=== PATIENT | female | born 1980 | race African-American/Black ===

== ENCOUNTER 2021-02-24 18:45 | Emergency (ER) | payer BC ==
[~2021-02-24] VITALS: Ht 170.2 cm; Wt 114.1 kg
[2021-02-24 19:12] VITALS: TEMP 102.7
[2021-02-24 21:22] LABS: BASO % 0.4 % (0.0-2.0); EOS % 0.2 % (0-4.0); GRAN # 2.5 (1.4-6.5); GRAN % 50.3 % (42.2-75.2); HEMATOCRIT 43.7 % (37.0-47.0); HEMOGLOBIN 13.8 g/dl (12.5-16.0); LYMPH # 1.6 (1.2-3.4); LYMPH % 32.7 % (20.0-51.0); MEAN CELL VOLUME 86 fl (80.0-100.0); MEAN CORPUSCULAR HEMOGLOBIN 27 pg (27.0-31.0); MEAN CORPUSCULAR HGB CONC 32 g/dl (33.0-37.0); MEAN PLATELET VOLUME 10.3 fl (7.4-10.4); MONO # 0.8 (0.1-0.6); MONO % 16.2 % (1.7-9.3); PLATELET COUNT 252 K/mm3 (130-400); RED BLOOD COUNT 5.08 M/mm3 (4.10-5.30); REDCELL DISTRIBUTION WIDTH-CV 14.1 % (11.5-14.5)
[2021-02-24 21:32] LABS: ALBUMIN 4.2 gm/dL (3.5-5.0); BILIRUBIN,TOTAL 0.6 mg/dL (0.0-1.0); CALCIUM 9.2 mg/dL (8.4-10.2); CREATININE, serum 1.12 (0.52-1.25); POTASSIUM 4.1 mmol/L (3.4-5.0); TOTAL PROTEIN 8.4 gm/dL (6.4-8.2)
[2021-02-25 00:53] VITALS: BP 117/83; PULSE 88
== END 2021-02-25 00:53 | disposition home or self-care (01) ==
LOC: COL.ER 18:45
PROVIDERS: Personal Emergency Response Attendant
DX: U07.1 COVID-19 (principal); Z86.711 Personal history of pulmonary embolism
CPT/HCPCS: J7030; Q9967

== ENCOUNTER 2021-03-09 06:25 | Emergency (ER) | payer BC ==
[~2021-03-09] VITALS: Ht 170.2 cm; Wt 111.4 kg
[2021-03-09 06:28] VITALS: TEMP 97.2
[2021-03-09] MEDS ORDERED: ATIVAN 1MG T1 MG/TAB PO (06:45)
[2021-03-09 06:59] LABS: BASO % 0.3 % (0.0-2.0); EOS # 0.1 (0.0-0.7); EOS % 1.1 % (0-4.0); GRAN # 6.7 (1.4-6.5); HEMATOCRIT 39.8 % (37.0-47.0); HEMOGLOBIN 13.1 g/dl (12.5-16.0); LYMPH # 2.8 (1.2-3.4); LYMPH % 26.5 % (20.0-51.0); MEAN CELL VOLUME 82 fl (80.0-100.0); MEAN CORPUSCULAR HEMOGLOBIN 27 pg (27.0-31.0); MEAN CORPUSCULAR HGB CONC 33 g/dl (33.0-37.0); MEAN PLATELET VOLUME 10.2 fl (7.4-10.4); MONO # 0.9 (0.1-0.6); MONO % 8.7 % (1.7-9.3); PLATELET COUNT 455 K/mm3 (130-400); RED BLOOD COUNT 4.85 M/mm3 (4.10-5.30); REDCELL DISTRIBUTION WIDTH-CV 13.8 % (11.5-14.5)
[2021-03-09 07:17] LABS: ALBUMIN 4.3 gm/dL (3.5-5.0); BILIRUBIN,TOTAL 0.9 mg/dL (0.0-1.0); CALCIUM 9.3 mg/dL (8.4-10.2); CREATININE, serum 0.86 (0.52-1.25); POTASSIUM 3.6 mmol/L (3.4-5.0)
[2021-03-09] MEDS ORDERED: ZITHROMAX Z PA250 MG PO (09:45)
[2021-03-09 11:22] LABS: COLLECTION METHOD CLEAN CATCH
[2021-03-09 11:29] LABS: PH 6 (5-8); SQUAMOUS EPITHELIAL 0-2 /hpf; URINE APPEARANCE Clear; URINE BACTERIA None Seen /hpf; URINE BILIRUBIN Negative (NEGATIVE); URINE BLOOD Negative (NEGATIVE); URINE COLOR Yellow; URINE GLUCOSE Negative (NEGATIVE); URINE KETONE 1+ (NEGATIVE); URINE LEUKOCYTE ESTERASE Negative (NEGATIVE); URINE NITRATE Negative (NEGATIVE); URINE PROTEIN(semi-quant) Negative (NEGATIVE); URINE UROBILINOGEN Negative (NEGATIVE); URINE WBC 0-2 /hpf
[2021-03-09 11:40] LABS: TRICYCLIC ANTIDEPRESS URINE NEGATIVE
[2021-03-09 13:29] VITALS: BP 132/88; PULSE 110
[2021-03-10] MEDS ORDERED: XARELTO STARTER20 MG PO (09:29)
[2021-03-10] MEDS ORDERED: NORCO 325 MG-51 TAB PO (09:38)
== END 2021-03-09 13:36 | disposition home or self-care (01) ==
LOC: COL.ER 06:25
PROVIDERS: Emergency Medicine; Personal Emergency Response Attendant
DX: U07.1 COVID-19 (principal); G47.00 Insomnia, unspecified
CPT/HCPCS: J2060; J7030; Q9967

== ENCOUNTER 2021-03-10 09:09 | Emergency (ER) | payer BC ==
[~2021-03-10] VITALS: Ht 170.2 cm; Wt 111.4 kg
[~2021-03-10 09:09] MED LIST changes: -DESYREL 50MG50 MG PO; -NORCO 325 MG-51 TAB PO; -XARELTO STARTER20 MG PO
[2021-03-10 09:11] VITALS: TEMP 98.1
[2021-03-10] MEDS ORDERED: XARELTO STARTER20 MG PO (09:29)
[2021-03-10] MEDS ORDERED: NORCO 325 MG-51 TAB PO (09:38)
[2021-03-10 09:40] VITALS: BP 95/61; PULSE 100
== END 2021-03-10 10:18 | disposition home or self-care (01) ==
LOC: COL.ER 09:09
DX: I82.402 Acute embolism and thrombosis of unspecified deep veins of left lower extremity (principal); Z86.16 Personal history of COVID-19

== ENCOUNTER → 2021-03-10 | Outpatient (CLI) | payer BC ==
[~2021-03-10] MED LIST: ATIVAN 1MG T1 MG/TAB PO; DESYREL 50MG50 MG PO; NORCO 325 MG-51 TAB PO; XARELTO STARTER20 MG PO; ZITHROMAX Z PA250 MG PO
== END ==
LOC: COL.ER 07:53 → COL.RAD 12:00 → EDSTATUS 16:42
DX: I82.432 Acute embolism and thrombosis of left popliteal vein (principal)

== ENCOUNTER 2021-03-23 21:35 | Emergency (ER) | payer BC ==
[~2021-03-23] VITALS: Ht 170.2 cm; Wt 109.1 kg
[~2021-03-23 21:35] MED LIST changes: +NORCO 325 MG-51 TAB PO; +XARELTO STARTER20 MG PO
[2021-03-23 23:07] LABS: BASO % 0.3 % (0.0-2.0); EOS % 0.1 % (0-4.0); GRAN # 4.8 (1.4-6.5); HEMATOCRIT 40.5 % (37.0-47.0); HEMOGLOBIN 13.1 g/dl (12.5-16.0); LYMPH # 1.7 (1.2-3.4); LYMPH % 23.8 % (20.0-51.0); MEAN CELL VOLUME 85 fl (80.0-100.0); MEAN CORPUSCULAR HEMOGLOBIN 28 pg (27.0-31.0); MEAN CORPUSCULAR HGB CONC 32 g/dl (33.0-37.0); MEAN PLATELET VOLUME 10.1 fl (7.4-10.4); MONO # 0.5 (0.1-0.6); MONO % 7.7 % (1.7-9.3); PLATELET COUNT 270 K/mm3 (130-400); RED BLOOD COUNT 4.74 M/mm3 (4.10-5.30); REDCELL DISTRIBUTION WIDTH-CV 14.4 % (11.5-14.5)
[2021-03-23 23:18] LABS: ALANINE AMINOTRANSFERASE 25 U/L (4-34); ALBUMIN 4.2 gm/dL (3.5-5.0); ALCOHOL(ethanol),MEDICAL < 10 mg/dL; ALKALINE PHOSPHATASE 52 U/L (50-136); ANION GAP 10 mmol/L (7-16); AST,SGOT 28 U/L (15-37); BILIRUBIN,TOTAL 0.6 mg/dL (0.0-1.0); BLOOD UREA NITROGEN 5 mg/dL (7-17); CALCIUM 9.1 mg/dL (8.4-10.2); CARBON DIOXIDE 23 mmol/L (22-30); CHLORIDE 105 mmol/L (98-107); GLUCOSE 147 mg/dL (74-106); POTASSIUM 3.1 mmol/L (3.4-5.0); SODIUM 139 mmol/L (137-145); TOTAL PROTEIN 8.3 gm/dL (6.4-8.2)
[2021-03-23 23:44] LABS: COLLECTION METHOD CLEAN CATCH
[2021-03-23 23:51] LABS: MUCOUS Present /lpf; PH 6 (5-8); SQUAMOUS EPITHELIAL 0-2 /hpf; URINE APPEARANCE Clear; URINE BACTERIA Rare /hpf; URINE BILIRUBIN Negative (NEGATIVE); URINE BLOOD Negative (NEGATIVE); URINE COLOR Yellow; URINE GLUCOSE Negative (NEGATIVE); URINE KETONE Negative (NEGATIVE); URINE LEUKOCYTE ESTERASE Negative (NEGATIVE); URINE NITRATE Negative (NEGATIVE); URINE PROTEIN(semi-quant) Negative (NEGATIVE); URINE RBC 0-2 /hpf; URINE UROBILINOGEN Negative (NEGATIVE)
[2021-03-23 23:57] LABS: TRICYCLIC ANTIDEPRESS URINE NEGATIVE
[2021-03-24 03:20] VITALS: BP 137/98; PULSE 110; TEMP 98.6
[2021-03-25] MEDS ORDERED: DESYREL 50MG50 MG PO (18:32)
== END 2021-03-24 03:20 | disposition home or self-care (01) ==
LOC: COL.ER 21:35
PROVIDERS: Emergency Medicine
DX: F41.9 Anxiety disorder, unspecified (principal); E87.6 Hypokalemia; Z79.899 Other long term (current) drug therapy

== ENCOUNTER 2021-03-25 01:08 | Emergency (ER) | payer BC ==
[~2021-03-25] VITALS: Ht 177.8 cm; Wt 127.3 kg
[2021-03-25 02:21] LABS: BASO % 0.3 % (0.0-2.0); EOS % 0.2 % (0-4.0); GRAN # 7.3 (1.4-6.5); GRAN % 69.9 % (42.2-75.2); HEMATOCRIT 41.9 % (37.0-47.0); HEMOGLOBIN 13.7 g/dl (12.5-16.0); LYMPH # 2.3 (1.2-3.4); LYMPH % 21.6 % (20.0-51.0); MEAN CELL VOLUME 83 fl (80.0-100.0); MEAN CORPUSCULAR HEMOGLOBIN 27 pg (27.0-31.0); MEAN CORPUSCULAR HGB CONC 33 g/dl (33.0-37.0); MEAN PLATELET VOLUME 10.3 fl (7.4-10.4); MONO # 0.8 (0.1-0.6); MONO % 7.9 % (1.7-9.3); PLATELET COUNT 302 K/mm3 (130-400); RED BLOOD COUNT 5.05 M/mm3 (4.10-5.30); REDCELL DISTRIBUTION WIDTH-CV 14.5 % (11.5-14.5)
[2021-03-25 02:37] LABS: ACETAMINOPHEN < 10 ug/mL (10-30); ALCOHOL(ethanol),MEDICAL < 10 mg/dL; SALICYLATE < 1.0 mg/dL
[2021-03-25 05:03] LABS: CALCIUM 9.6 mg/dL (8.4-10.2); CREATININE, serum 0.94 (0.52-1.25); POTASSIUM 3.5 mmol/L (3.4-5.0)
[2021-03-25 06:33] LABS: COLLECTION METHOD CLEAN CATCH
[2021-03-25 06:39] LABS: PH 5 (5-8); SQUAMOUS EPITHELIAL 0-2 /hpf; URINE APPEARANCE Clear; URINE BACTERIA Many /hpf; URINE BILIRUBIN Negative (NEGATIVE); URINE BLOOD Negative (NEGATIVE); URINE COLOR Yellow; URINE GLUCOSE Negative (NEGATIVE); URINE KETONE Trace (NEGATIVE); URINE LEUKOCYTE ESTERASE Negative (NEGATIVE); URINE NITRATE Negative (NEGATIVE); URINE PROTEIN(semi-quant) Negative (NEGATIVE); URINE RBC 0-2 /hpf; URINE UROBILINOGEN Negative (NEGATIVE)
[2021-03-25 06:47] LABS: TRICYCLIC ANTIDEPRESS URINE NEGATIVE
[2021-03-25] MEDS ORDERED: DESYREL 50MG50 MG PO (18:32)
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
[2021-03-27 15:47] VITALS: BP 140/90; PULSE 98; TEMP 98.7
== END 2021-03-27 16:27 ==
LOC: COL.ER 01:08
PROVIDERS: Emergency Medicine
DX: R45.850 Homicidal ideations (principal); R07.2 Precordial pain
CPT/HCPCS: J1200; J1630; Q9967